=== PATIENT | female | born 1990 | race Caucasian/White ===

== ENCOUNTER 2022-09-22 22:12 | Outpatient (CLI) | payer OTHER ==
[2022-09-22] MEDS ORDERED: PRENA1 TRUE CO1 EACH (23:26)
[2022-09-22] MEDS ORDERED: ADULT ASPIRIN81 MG PO (23:26)
== END 2022-09-23 09:38 | disposition home or self-care (01) ==
LOC: OBS/DEL 22:12
PROVIDERS: ATTEND Obstetrics & Gynecology
DX: O26.892 Other specified pregnancy related conditions, second trimester (principal); Z3A.21 21 weeks gestation of pregnancy

== ENCOUNTER 2022-12-16 12:48 | Outpatient (CLI) | payer OTHER ==
[~2022-12-16 12:48] MED LIST: ADULT ASPIRIN81 MG PO; PRENA1 TRUE CO1 EACH
== END 2022-12-16 13:31 | disposition home or self-care (01) ==
LOC: NST 12:48
PROVIDERS: ATTEND Obstetrics & Gynecology
DX: Z34.83 Encounter for supervision of other normal pregnancy, third trimester (principal)

== ENCOUNTER 2022-12-29 16:56 | Outpatient (CLI) | payer OTHER | END 2022-12-29 17:38 | disposition home or self-care (01) | LOC: NST 16:56 | PROVIDERS: ATTEND Obstetrics & Gynecology Gynecology | DX: Z34.83 Encounter for supervision of other normal pregnancy, third trimester (principal) ==

== ENCOUNTER 2023-01-12 10:01 | Inpatient (IN) | payer OTHER ==
[~2023-01-12] VITALS: Ht 162.6 cm; Wt 88.0 kg
[2023-01-13] MEDS ORDERED: PEPCID AC20 MG PO (12:34)
[2023-01-25] MEDS ORDERED: ACID CONTROLLER10 MG (11:30)
== END 2023-01-27 13:48 | disposition home or self-care (01) | DRG 788 ==
LOC: O/R 01-25 06:38 → OB/GYN 01-25 06:38
PROVIDERS: ADMIT Obstetrics & Gynecology Maternal & Fetal Medicine; ATTEND Obstetrics & Gynecology Maternal & Fetal Medicine
PROC: 4A1HXCZ Monitoring of Products of Conception, Cardiac Rate, External Approach (ICD-10-PCS; 2023-01-25)
PROC: 10D00Z1 Extraction of Products of Conception, Low, Open Approach (ICD-10-PCS; principal; 2023-01-25 09:30)
DX: O34.211 Maternal care for low transverse scar from previous cesarean delivery (principal); Z3A.39 39 weeks gestation of pregnancy; Z37.0 Single live birth; Z20.822 Contact with and (suspected) exposure to COVID-19

== ENCOUNTER 2023-01-20 10:34 | Outpatient (CLI) | payer OTHER ==
[~2023-01-20 10:34] MED LIST changes: +PEPCID AC20 MG PO
== END 2023-01-20 11:21 | disposition home or self-care (01) ==
LOC: NST 10:34
PROVIDERS: ATTEND Obstetrics & Gynecology
DX: Z34.83 Encounter for supervision of other normal pregnancy, third trimester (principal)

== ENCOUNTER 2023-03-06 11:32 | Outpatient (CLI) | payer OTHER ==
[~2023-03-06 11:32] MED LIST changes: +ACID CONTROLLER10 MG
== END 2023-03-06 11:45 | disposition home or self-care (01) ==
LOC: TOM 11:32
PROVIDERS: ATTEND Obstetrics & Gynecology
DX: N73.0 Acute parametritis and pelvic cellulitis (principal); K65.1 Peritoneal abscess